=== PATIENT | female | born 1965 | race Caucasian/White ===

== ENCOUNTER → 2018-06-16 11:09 | Outpatient (CLI) | payer BC, SELFPAY ==
--- NOTE | 2018-06-16 11:10 | XR_ITS ---
XR foot wt bearing LT 3V HISTORY: ITS.REASON: pain ORDERING PHYSICIAN: Tejal Underwood DPM PATIENT AGE: 52 years COMPARISON: None FINDINGS: There is been prior arthroplasty of the first metatarsophalangeal junction with articular implant at the proximal aspect of the proximal phalanx of the great toe. There is good alignment. No other significant anomalies are evident. IMPRESSION: Prior arthroplasty at the first metatarsophalangeal junction with no acute finding
--- NOTE | 2018-06-16 11:10 | XR_ITS ---
XR foot wt bearing RT 3V HISTORY: ITS.REASON: pain ORDERING PHYSICIAN: Tejal Underwood DPM PATIENT AGE: 52 years COMPARISON: None FINDINGS: There are prominent hypertrophic changes at the first metatarsophalangeal junction with prominent bony spurring dorsally of the distal aspect of the first metatarsal and the proximal aspect of the proximal phalanx of the great toe. There is normal alignment. No fracture or dislocation. Prominent calcaneal spurs present at 9 mm. IMPRESSION: Osteoarthritis of the first metatarsophalangeal joint with prominent bony spurring dorsally
== END ==
PROVIDERS: Visit Provider Podiatrist
DX: M79.671 Pain in right foot (principal); M79.672 Pain in left foot
CPT/HCPCS: 73630

== ENCOUNTER → 2018-10-14 11:15 | Outpatient (CLI) | payer BC, SELFPAY ==
--- NOTE | 2018-10-14 11:18 | XR_ITS ---
XR foot wt bearing LT 3V HISTORY: Follow-up fusion/osteotomy ITS.REASON: postop views ORDERING PHYSICIAN: Tejal Underwood DPM PATIENT AGE: 52 years COMPARISON: 09/29/2018 FINDINGS: Study is obtained through a splint. Dorsal bone plate at the first metatarsophalangeal junction once again noted with good alignment with a bone graft at the proximal aspect of the proximal phalanx with good alignment. The pin which extends from the distal phalanx into the proximal phalanx has shown some distraction compared to the previous study. Previously the pin was in the distal aspect of the first metatarsal now the tip of the pin is at the proximal aspect of the proximal phalanx IMPRESSION: Good alignment status post fusion of the first MTP joint. There has been some mild distraction of the phalangeal pin of the first digit
== END ==
PROVIDERS: Visit Provider Podiatrist
DX: Z98.890 Other specified postprocedural states (principal)
CPT/HCPCS: 73630

== ENCOUNTER → 2018-10-27 10:47 | Outpatient (CLI) | payer BC, SELFPAY ==
--- NOTE | 2018-10-27 10:53 | XR_ITS ---
XR foot wt bearing LT 3V HISTORY: Follow-up surgery/fusion ITS.REASON: Post-op views ORDERING PHYSICIAN: Tejal Underwood DPM PATIENT AGE: 52 years COMPARISON: 10/14/2018 FINDINGS: The splint has been removed. The K wire has also been removed. Dorsal bone plate remains present status post osteotomy of the proximal aspect of the proximal phalanx of the great toe with a bone graft. Dorsal bone plate stabilizes the first metatarsophalangeal joint with good alignment. IMPRESSION: Follow-up foot surgery with removal of the K wire and the splint as described above
== END ==
PROVIDERS: Visit Provider Podiatrist
DX: Z98.890 Other specified postprocedural states (principal)
CPT/HCPCS: 73630

== ENCOUNTER → 2018-12-07 11:27 | Outpatient (CLI) | payer BC, SELFPAY ==
--- NOTE | 2018-12-07 11:33 | XR_ITS ---
XR foot wt bearing LT 3V HISTORY: Follow-up surgery ITS.REASON: post-op ORDERING PHYSICIAN: Tejal Underwood DPM PATIENT AGE: 53 years COMPARISON: 10/27/2018 FINDINGS: No change status post fusion of the first metatarsophalangeal joint with osteotomy at the proximal aspect of the proximal phalanx of the great toe. There is some decreased density involving the distal aspect of the first metatarsal not significant changed. IMPRESSION: Good alignment status post fusion with osteotomy of the first MTP joint
== END ==
PROVIDERS: Visit Provider Podiatrist
DX: Z98.890 Other specified postprocedural states (principal)
CPT/HCPCS: 73630